=== PATIENT | male | born 1985 | race American Indian/Alaskan Native ===

== ENCOUNTER 2021-06-24 18:15 | Emergency (ER) | payer SELFPAY ==
[2021-06-25] MEDS ORDERED: KETOROLAC 30 MG/1 ML INJ IM ONE (05:25)
[2021-06-25] MEDS ORDERED: oxyCODONE /ACETAMINOPHEN 5-325MG TAB PO ONE (05:25)
--- NOTE | 2021-06-25 05:27 | Event Note ---
Date: 06/25/21 Medical screening examination note: 36-year-old gentleman presenting with a complaint of left gluteal pain and swelling. He has no pain with defecation. He reports that he had a "blister" on his left gluteal cheek which he squeezed, now he has some surrounding induration. Patient provides permission for external gluteal examination. On the middle aspect of the left gluteal cheek, there is an area of induration, with a blister, without significant fluctuance. Suspect induration, cellulitis. Start the patient on pain medication. Nursing team to apply warm compresses. Detailed history and physical to be performed by oncoming provider.
[2021-06-25] MEDS ORDERED: LIDOCAINE (1%) 10 MG/1 ML VIAL 20 ML MDV INFILTRATI ONE (06:39)
--- NOTE | 2021-06-25 07:09 | Emergency Department Report ---
- General Chief complaint: Skin/Abscess/Foreign Body Stated complaint: ABCESS Time Seen by Provider: 06/25/21 06:16 Source: patient, EMS Mode of arrival: Stretcher Limitations: No Limitations - History of Present Illness Initial comments: 36-year-old M who present with left buttock swelling with pain and drainage for the last 5 days. Pt reports that he has been squeezing some yellowish/brownish discharge from this area. Patient also reports some sleep disturbance because of the pain coming from the area. Patient was seen by previous physician and was given some pain medication. Patient is requesting for I&D saying that previous encounter like this did not get better with antibiotics and pain medication until the abscess was drained. Patient denies any fever or chills. No other modifying no associated factors reported. - Related Data Previous Rx's Medication Instructions Recorded Last Taken Type Clindamycin [Clindamycin CAP] 300 mg PO Q8HR 10 Days #60 capsule 06/25/21 Unknown Rx NS Ketorolac [Toradol] 10 mg PO Q6H PRN 3 Days #12 tab NS 06/25/21 Unknown Rx Allergies Allergy/AdvReac Type Severity Reaction Status Date / Time No Known Allergies Allergy Verified 06/24/21 18:17 Abscess Boil HPI - HPI Chief Complaint: Skin/Abscess/Foreign Body Stated Complaint: ABCESS Time Seen by Provider: 06/25/21 06:16 Home Medications: Previous Rx's Medication Instructions Recorded Last Taken Type Clindamycin [Clindamycin CAP] 300 mg PO Q8HR 10 Days #60 capsule 06/25/21 Unknown Rx NS Ketorolac [Toradol] 10 mg PO Q6H PRN 3 Days #12 tab NS 06/25/21 Unknown Rx Allergies/Adverse Reactions: Allergies Allergy/AdvReac Type Severity Reaction Status Date / Time No Known Allergies Allergy Verified 06/24/21 18:17 ED Review of Systems ROS: Stated complaint: ABCESS Other details as noted in HPI Comment: All other systems reviewed and negative Skin: rash, other (swelling with warmth and abscess with pain on left buttock) ED Past Medical Hx - Medications Home Medications: Home Medications Medication Instructions Recorded Confirmed Last Taken Type Clindamycin [Clindamycin CAP] 300 mg PO Q8HR 10 Days #60 capsule 06/25/21 Unknown Rx NS Ketorolac [Toradol] 10 mg PO Q6H PRN 3 Days #12 tab NS 06/25/21 Unknown Rx ED Physical Exam - General Limitations: No Limitations General appearance: alert, in no apparent distress - Eye Eye exam: Present: normal appearance - ENT ENT exam: Present: normal exam, normal orophraynx, mucous membranes moist - Neck Neck exam: Present: normal inspection, full ROM. Absent: tenderness - Respiratory Respiratory exam: Present: normal lung sounds bilaterally. Absent: respiratory distress - Cardiovascular Cardiovascular Exam: Present: regular rate, normal rhythm, normal heart sounds - GI/Abdominal GI/Abdominal exam: Present: soft, normal bowel sounds. Absent: tenderness - Extremities Exam Extremities exam: Present: normal inspection, full ROM, normal capillary refill. Absent: tenderness - Back Exam Back exam: Present: normal inspection, tenderness (left buttock with swelling and erythema with purulent drainage in the center with surrounding induration), other (left buttock with swelling and erythema with purulent drainage in the center with surrounding induration). Absent: muscle spasm - Psychiatric Psychiatric exam: Present: normal affect, normal mood - Skin Skin exam: Present: erythema, other (left buttock with swelling and erythema with purulent drainage in the center with surrounding induration) ED Course Vital Signs 06/24/21 06/24/21 18:15 20:40 Temperature 98.3 F Pulse Rate 80 114 H Respiratory 18 Rate Blood Pressure 146/96 Blood Pressure 152/80 [Left] O2 Sat by Pulse 100 99 Oximetry - Reevaluation(s) Reevaluation #1: 06/25/21 07:12 Patient was initially screened by previous provider--we will give patient some pain medication with some improvement--on my examination I noted left gluteal muscle with swelling and erythema with purulent drainage in the center with surrounding induration--this cellulitis with some induration-- i explained to patient that since he has been able to squeeze most of the purulent discharge that all he probably needed is systemic antibiotics but he insisted that he will prefer I&D because he has experienced something like this in the past that did not get better until I & D was done. Will go ahead and try I&D with antibiotics with close follow up with his PCP. - I & D Left Dorsal Buttocks Type of Procedure: Simple Site: left glueal maximal muscle Blade Size: 11 I & D Procedure: betadine prep, sterile drapes applied Progress: already draining cellulitis/abscess -- the indurated centered incised with size 11 blade with minimal serosanguineous purulent discharge return. Critical care attestation.: If time is entered above; I have spent that time in minutes in the direct care of this critically ill patient, excluding procedure time. ED Disposition Clinical Impression: Cellulitis and abscess of buttock Disposition: 01 HOME / SELF CARE / HOMELESS Is pt being admited?: No Does the pt Need Aspirin: No Condition: Stable Instructions: Skin Abscess, Cellulitis, Adult, Incision and Drainage, Care After, Skin Abscess, [id number] Additional Instructions: Please take and complete your antibiotics as prescribed to help your symptoms You are also discharged with Toradol pain medication to be taken as needed Call and schedule follow-up with your primary doctor in the next 3 to 5 days for progress Please do not hesitate to call or return to emergency room if your symptoms worsen Prescriptions: Clindamycin [Clindamycin CAP] 300 mg PO Q8HR 10 Days #60 capsule NS Ketorolac [Toradol] 10 mg PO Q6H PRN 3 Days #12 tab NS PRN Reason: Pain Referrals: TOBY RODRÍGUEZ MD [Referring] - 3-5 Days Time of Disposition: 07:37
[2021-06-25 08:43] VITALS: BP 132/86
== END 2021-06-25 08:45 | disposition home or self-care (01) ==
LOC: ED 18:15
DX: L03.317 Cellulitis of buttock (principal)
CPT/HCPCS: 10060; 96372; 99282; J1885